=== PATIENT | female | born 1965 | race Two or more races ===

== ENCOUNTER 2024-09-06 21:14 | Emergency (ER) | payer SELFPAY ==
[2024-09-06 21:15] VITALS: BMI 25.7
[2024-09-06 22:00] VITALS: BP 131/78; PULSE 73; RESP 18; TEMP 36.9; O2SAT 96
--- NOTE | 2024-09-06 22:57 | XR_ITS ---
Examination: CT thoracic spine, without contrast. 2-D sagittal reconstructions. 2-D coronal reconstructions. 3-D reconstructions. Date and time of exam:September 06, 2024, 11:37 PM INDICATIONS: Patient fell today with injury to the mid back, mid back pain CTDI: vol (mGy):29 DLP: (mGycm):1113 Technique: Multiple 1.25 mm axial sections of the thoracic spine without intravenous contrast have been obtained. 2-D sagittal and coronal reconstructions have been obtained. 3-D reconstructions have been obtained. Low dose protocols were performed. One or more of the following dose reduction techniques were used; automated exposure control, adjustment of the mA and/or KV according to patient size, use of iterative reconstruction technique. Findings: Adequate alignment thoracic vertebral bodies Mild diffuse thoracic disc narrowing. No thoracic vertebral body compression fracture Pedicles and posterior spinous processes intact IMPRESSION: No acute thoracic fracture
--- NOTE | 2024-09-06 22:57 | XR_ITS ---
Examination: CT cervical spine without contrast 2-D sagittal reconstructions 2-D coronal reconstructions 3-D reconstructions. Exam date and time:September 06, 2024 2355 hours Comparison February 11, 2020 INDICATIONS: Ground-level fall today with injury to the neck, neck pain CTDI:vol (mGy) 12 DLP: (mGycm) 209 Technique: Multiple 2 mm axial sections of the cervical spine have been obtained. The coronal and sagittal reconstructions have been obtained. 3-D reconstructions have been obtained. Low dose protocols were performed. One or more of the following dose reduction techniques were used; automated exposure control, adjustment of the mA and/or KV according to patient size, use of iterative reconstruction technique. Findings: Axial sections demonstrate intact base of the skull. C1 exhibit satisfactory relationship to the odontoid. No acute cervical vertebral body fracture seen. Alignment posterior spinous processes satisfactory. Impression: No acute cervical fracture.
--- NOTE | 2024-09-06 22:57 | XR_ITS ---
Examination: CT lumbar spine, without contrast. 2-D sagittal reconstructions. 2-D coronal reconstructions. 3-D reconstructions. Date and time of exam:September 06, 2024 1157 hours INDICATIONS: Ground-level fall today with injury to back, lower lumbar back pain CTDI: vol (mGy):31 DLP: (mGycm):807 Technique: Multiple 1.25 mm axial sections of the lumbar spine without intravenous contrast have been obtained. 2-D sagittal and coronal reconstructions have been obtained. 3-D reconstructions have been obtained. Low dose protocols were performed. One or more of the following dose reduction techniques were used; automated exposure control, adjustment of the mA and/or KV according to patient size, use of iterative reconstruction technique. Findings: Grade 1 anterolisthesis L4 on L5 Mild to moderate disc narrowing L4-L5 No lumbar vertebral body compression fracture Lumbar pedicles and laminae transverse and posterior spinous processes intact L4-L5 moderate spinal stenosis secondary to the grade 1 anterolisthesis, 4 mm central lumbar disc bulge with mild bilateral L4 ganglionic compression. IMPRESSION: No acute lumbar fracture L4-L5 moderate spinal stenosis as above
--- NOTE | 2024-09-07 00:39 | PRELIM_ITS ---
CT scan of the cervical spine without intravenous contrast (axial sections with sagittal and coronal reformats) September 06, 2024 2355 hours Clinical History: Fall No prior study is available for comparison. Findings: There is no fracture or traumatic subluxation. Mild degenerative changes are noted. The prevertebral soft tissues are unremarkable. There is a 4 mm calcified nodule in the right upper lobe. Impression: No evidence of fracture or traumatic subluxation. Mild degenerative changes. Report Electronically Signed By: Cruzito Colindres 09/07/2024 12:38:11 AM [EST]
--- NOTE | 2024-09-07 00:40 | PRELIM_ITS ---
CT scan of the thoracic spine without intravenous contrast (axial sections with sagittal and coronal reformats) September 06, 2024 2357 hours Clinical History: Fall No prior study is available for comparison. Findings: There is no fracture or subluxation. Mild degenerative changes are noted. There is no pre or paravertebral soft tissue abnormality. Impression: No fracture or subluxation. Mild degenerative changes. Report Electronically Signed By: Cruzito Colindres 09/07/2024 12:39:30 AM [EST]
--- NOTE | 2024-09-07 00:43 | PRELIM_ITS ---
CT scan of the lumbar spine without intravenous contrast (axial sections with sagittal and coronal reformats) September 06, 2024 2357 hours Clinical History: Fall No prior study is available for comparison. Findings: There is no fracture or traumatic subluxation. There is mild anterolisthesis of L4 over L5. There are multilevel mild degenerative changes, most prominent at L4-L5 and L5-S1 levels. Mild to moderate spinal canal and mild bilateral neural foraminal narrowing at L4-L5. Mild diffuse disc bulge at L5-S1. The soft tissues are unremarkable. Impression: No evidence of fracture, subluxation or significant soft tissue injury. Mild degenerative changes as described above. Report Electronically Signed By: Cruzito Colindres 09/07/2024 12:42:48 AM [EST]
[2024-09-07 01:00] VITALS: RESP 18
--- NOTE | 2024-09-07 02:35 | EDNOTE_ITS ---
<Statement entered by Yaneth Oliver MD - 09/07/24 18:27> As co-signing physician, I was present and available for consult prn. I concur with the plan and care as documented by the midlevel provider. ED Back Injury Pain RME/HPI General Chief Complaint: Fall Stated Complaint: FALL AT WORK Time Seen by Provider: 09/06/24 22:56 Arrival date/time: 09/06/24 21:14 59F with no significant PMH presents to ED with back pain after she tripped and fell on her butt at work. Patient denies hitting her head. Limitations: no limitations Related Data Previous Rx's ?Medication ?Instructions ?Recorded naproxen 500 mg tablet 500 mg PO BID PRN pain #30 t abs 02/11/20 ondansetron 4 mg disintegrating 4 mg PO Q8H PRN nausea and 02/11/20 tablet vomiting #14 tabs ibuprofen 600 mg tablet 600 mg PO TID PRN pain #30 t abs 07/22/21 Allergies Allergy/AdvReac Type Severity Reaction Status Date / Time No Known Allergies Allergy Verified 09/06/24 21:15 Review of Systems Review of Systems Systems Reviewed: All systems reviewed, normal except as documented Constitutional Constitutional: Reports system reviewed and no additional complaints, except as documented, Denies fever(s) and Denies headache(s) ENT Ears, Nose, Mouth, and Throat: Denies disequilibrium and Denies headache(s) Cardiovascular Cardiovascular: Reports system reviewed and no additional complaints, except as documented, Denies chest pain and Denies dyspnea Respiratory Respiratory: Reports system reviewed and no additional complaints, except as documented, Denies cough and Denies dyspnea Gastrointestinal Gastrointestinal: Reports system reviewed and no additional complaints, except as documented, Denies abdominal pain, Denies nausea and Denies vomiting Musculoskeletal Musculoskeletal: Reports as per HPI and Reports back pain Neurologic Neurologic: Reports system reviewed and no additional complaints, except as documented, Denies confusion, Denies disequilibrium and Denies headache(s) Psychiatric Psychiatric: Denies confusion Past Medical History Past Medical History CARDIAC: Negative Congestive Heart Failure RESPIRATORY: Negative Chronic Obstructive Pulmonary Disease (COPD) GENITOURINARY: Negative Renal Disease ENDOCRINE: Negative Diabetes Mellitus Type 1 or Diabetes Mellitus Type 2 Social History SMOKING STATUS: Never smoker ED Exam General Limitations: Present no limitations General appearance: Present alert and in no apparent distress Head Head exam: Present atraumatic Eye Eye exam: Present normal appearance, PERRL and EOMI ENT ENT exam: Present normal exam, normal oropharynx and mucous membranes moist Neck Neck exam: Present normal inspection, full ROM and trachea midline Chest Chest inspection: Present normal inspection and symmetric chest wall rise Respiratory Respiratory exam: Present normal lung sounds bilaterally Cardiovascular Cardiovascular exam: Present regular rate, normal rhythm and normal heart sounds Abdominal Exam Abdominal exam: Present soft and normal bowel sounds Extremities Exam Extremities exam: Present normal inspection and full ROM Back Exam Back exam: Present full ROM and tenderness Neurological Exam Neurological exam: Present alert, oriented X3 and CN II-XII intact Psychiatric Psychiatric exam: Present normal affect and normal mood Skin Skin exam: Present warm, dry, intact and normal color Course Quality Measures none Orders Category Date Time Status CT cervical spine wo con Stat Exams 09/06/24 22:[address] lumbar spine wo con Stat Exams 09/06/24 22:[address] thoracic spine wo con Stat Exams 09/06/24 22:57 Taken Vital Signs Vital signs: Vital Signs Temperature 98.4 F 09/06/24 22:00 Pulse Rate 73 09/06/24 22:00 Respiratory Rate 18 09/06/24 22:00 Blood Pressure 131/78 H 09/06/24 22:00 Pulse Oximetry (%) 96 09/06/24 22:00 Oxygen Delivery Method Room Air 09/06/24 22:00 O2 at 96% on RA and WNLs Back Pain / Injury MDM Narrative MDM Narrative:: 59F with no significant PMH presents to ED with back pain after she tripped and fell on her butt at work. Patient denies hitting her head. Physical exam reveals some midline back tenderness. Gait normal. ROM normal. Patient is afebrile, calm, and alert. CT unremarkable. Patient data External records reviewed:: [facility] previous records Clinical information provided by:: patient Social determinants that could affect healthcare access:: none Patient has the following chronic illnesses:: none How is presenting disease/condition affected by chronic disease/condition?: no chronic disease Evaluation data The following diagnostics were reviewed and interpreted by me:: radiology exam(s) Lab and/or radiology exams considered but not ordered:: ordered Interpretation Summary: above Medications / Prescriptions Medications or Prescriptions considered but not ordered:: not ordered Medication administrations:: n/a Consultations Consultation(s) initiated? (list below): No Diagnosis Differential diagnosis back pain/injury: lumbar radiculopathy, sciatica, strain of lumbar region, renal colic, pyelonephritis, thoracic back pain, AAA, discitis and other (soft tissue contusion) Most likely diagnosis given after review of the tests above:: soft tissue contusion Admission Indicated Admission indicated?: not indicated Admission Request Was there a request for admission?: No Disposition Plan Disposition Plan: Discharge Discharge Attestation Discharge Attestation: The patient and all family members were given an opportunity to ask questions and understood the discharge instructions. Discharge instructions specifically effects, indications for sooner follow up or return to the emergency department, and the expected course of current diagnosis. Patient condition: Stable Discharge Plan Plan Patient Disposition: HOME (Self Care) Discharge Disposition comment: Stable Prescriptions/Referrals Prescriptions/Med Rec: No Action ibuprofen 600 mg tablet 600 mg PO TID PRN (Reason: pain) Qty: 30 0RF ondansetron 4 mg tablet,disintegrating 4 mg PO Q8H PRN (Reason: nausea and vomiting) Qty: 14 0RF naproxen 500 mg tablet 500 mg PO BID PRN (Reason: pain) Qty: 30 0RF Referrals: Sanjeev Burciaga MD [Primary Care Provider] - In 1 week Problem List Clinical Impression: Contusion of soft tissue Patient/Caregiver Discharge Instructions Education Materials: ED Soft Tissue Contusion Additional Instructions: Please follow-up with PCP within 24-48 hours and return immediately if symptoms worsen. If problem persists, recommend outpatient PT and/or MRI follow-up. In the meantime, rest, use ice/heat, and/or compression. Print Language: Khmer Stand Alone Forms: Patient Portal Info Letter EDNA/AGGIE Supervising Physician EDNA/AGGIE Supervising Physician: Dr. Oliver
== END 2024-09-07 01:01 | disposition home or self-care (01) ==
PROVIDERS: Emergency Provider Emergency Medicine; PCP Family Medicine
DX: M48.061 Spinal stenosis, lumbar region without neurogenic claudication (principal); M51.369 Other intervertebral disc degeneration, lumbar region without mention of lumbar back pain or lower extremity pain; S30.0XXA Contusion of lower back and pelvis, initial encounter; W01.0XXA Fall on same level from slipping, tripping and stumbling without subsequent striking against object, initial encounter; Y99.0 Civilian activity done for income or pay
CPT/HCPCS: 72125; 72128; 72131; 99284